=== PATIENT | male | born 1965 ===

== ENCOUNTER 2021-09-13 05:05 | Day surgery (SDC) | payer OTHER ==
[2021-09-10 14:56] VITALS: BMI 23.0
[2021-09-13 12:54] VITALS: TEMP 98
[2021-09-13 14:59] VITALS: BP 129/79; PULSE 70
== END 2021-09-13 13:40 | disposition home or self-care (01) ==
LOC: JASU-ENDO 05:05
PROVIDERS: ATTEND Internal Medicine Gastroenterology
PROC: 0DB68ZX Excision of Stomach, Via Natural or Artificial Opening Endoscopic, Diagnostic (ICD-10-PCS; 2021-09-13)
PROC: 0DJD8ZZ Inspection of Lower Intestinal Tract, Via Natural or Artificial Opening Endoscopic (ICD-10-PCS; principal; 2021-09-13 12:00)
DX: Z12.11 Encounter for screening for malignant neoplasm of colon (principal); K29.50 Unspecified chronic gastritis without bleeding
CPT/HCPCS: 43239; G0121; 88305-TC; 88342-TC